=== PATIENT | male | born 1995 | race Caucasian/White ===

== ENCOUNTER 2021-08-04 17:10 | Emergency (ER) | payer OTHER, SELFPAY ==
[2021-08-04 18:10] VITALS: BP 141/95; PULSE 88; RESP 20; TEMP 36.8; O2SAT 97; BMI 31.5
[2021-08-04 18:39] VITALS: BP 141/95; PULSE 88; RESP 20; TEMP 36.8; O2SAT 97
--- NOTE | 2021-08-04 18:51 | HMH.EDUTC ---
[facility] Disposition Clinical Impression: Cellulitis of right foot, Need for Tdap vaccination Puncture wound of right foot Qualifiers: Encounter type: initial encounter Qualified Code(s): S91.331A - Puncture wound without foreign body, right foot, initial encounter Disposition: Home, Self-Care Condition on Discharge: Good Instructions: Cellulitis Additional Instructions: Rest the extremity, Elevate the extremity as much time as tolerated while you are resting. Soak the foot in warm epsom salts water 3 or 4 times per day for 10 minutes each time. Take ibuprofen for pain. I sent in a prescription to your pharmacy. Follow up with Dr. Alston (podiatry) or your regular doctor if you are not getting better with in 48 to 72 hours. I put in a referral to Dr. Alston. You would need to call her office to make an appointment if you want to see her. Follow up with your regular doctor. GO TO THE ER FOR ANY WORSENING SYMPTOMS Prescriptions: Sulfamethoxazole/Trimethoprim [Bactrim DS tablet] 1 each PO BID 10 Days #20 tab Transmission Status: Received by [facility] #[id number] Mupirocin [Bactroban 2% Ointment 22gm tube] 1 applicatio TP TID 7 Days #1 gm Transmission Status: Received by [facility] # cephALEXin [cephALEXin 500mg capsule] 500 mg PO Q6H 10 Days #40 cap Transmission Status: Received by [facility] #[id number] Referrals: Provider,Referral, [Primary Care Provider] - Valeria Alston DPM [Staff Physician] - Time of Disposition: 19:04 Medical Decision Making - Medical Records Medical records reviewed: No: I reviewed the patient's medical records. - [facility] Inquiry Pt receiving controlled substance: No Vital Signs: 08/04/21 18:10 08/04/21 18:39 Temperature 98.3 F 98.3 F Temperature Source Oral Pulse Rate 88 Pulse Rate [Right Brachial] 88 Respiratory Rate 20 20 Blood Pressure 141/95 H Blood Pressure [Right Arm] 141/95 H Blood Pressure Mean [Right Arm] 110 Blood Pressure Source [Right Arm] Automatic Cuff Blood Pressure Position [Right Arm] Sitting 02 Sat by Pulse Oximetry 97 Oxygen Delivery Method Room Air Orders (Tests/Meds): ED MEDICATIONS Discontinued Medications Generic Name Dose Route Start Last Admin Trade Name Paty PRN Reason Stop Dose Admin Tetanus/Reduced Diphtheria/Acell Pertussis 0.5 ml 08/04/21 18:30 08/04/21 18:30 Tet/Diphth/Pert-Adult 0.5ml Syringe IM 08/04/21 18:31 0.5 ml .ONCE ONE Administration [facility] HPI - General Stated complaint: AO 08/03 stepped on drill bit R foot Time Seen by Provider: 08/04/21 18:51 Mode of Arrival: Ambulatory Source of Information: Patient Limitations: No Limitations Description of Symptoms (Recalled from Triage Doc. by RN): PATIENT REPORTS STEPPING ON A DRILL BIT WITH RIGHT FOOT YESTERDAY. REDNESS AND SWELLING TO RIGHT SECOND TOE. PATIENT NEEDS TDAP HEENT Symptoms (Recalled from RN notes): No Resp Symptoms (Recalled from RN notes): No Skin Symptoms (Recalled from RN notes): Yes MS Symptoms (Recalled from RN notes): No Functional Status (Recalled from RN notes): WNL - History of Present Illness Provider Complaint: He states that he stepped on a drill bit with his bare right foor yesterday. He recieved a small puncture wound to the bottom of his right 2nd toe. Since then, he has had worsening pain and swelling of that toe. He denies any fever or chills. He is not a known diabetic. He denies that there could be any foreign body in the wound. He refuses an x-ray. His tetanus immunization is not up to date. - Related Data Previous Rx's Medication Instructions Recorded Mupirocin [Bactroban 2% Ointment 1 applicatio TP TID 7 Days #1 gm 08/04/21 22gm tube] Sulfamethoxazole/Trimethoprim 1 each PO BID 10 Days #20 tab 08/04/21 [Bactrim DS tablet] cephALEXin [cephALEXin 500mg 500 mg PO Q6H 10 Days #40 cap 08/04/21 capsule] fluoxetine 40 mg capsule 40 mg PO DAILY #90 cap 08/05/21
== END 2021-08-04 19:06 | disposition home or self-care (01) ==
PROVIDERS: Emergency Provider Nurse Practitioner Family
DX: L03.115 Cellulitis of right lower limb (principal); S91.331A Puncture wound without foreign body, right foot, initial encounter; W22.8XXA Striking against or struck by other objects, initial encounter; Z23 Encounter for immunization; F33.1 Major depressive disorder, recurrent, moderate
CPT/HCPCS: 90471; 90715; 99202; G0463

== ENCOUNTER 2024-03-08 14:40 | Emergency (ER) | payer OTHER, SELFPAY ==
[2024-03-08 14:45] VITALS: BP 143/75; PULSE 87; RESP 19; TEMP 37; O2SAT 98; BMI 34.4
--- NOTE | 2024-03-08 14:59 | ED_ITS ---
Discharge Plan Disposition Patient Disposition: Home, Self-Care Condition: Good Prescriptions Prescriptions: New clindamycin HCl 300 mg capsule 300 mg PO Q8H Qty: 30 0RF sulfamethoxazole-trimethoprim [Bactrim DS] 800-160 mg Tablet 1 tab PO BID Qty: 20 0RF mupirocin 2 % ointment 1 applic topical TID 7 Days Qty: 15 0RF No Action fluoxetine 40 mg capsule 40 mg .ROUTE .COMPLEX Qty: 90 0RF Rx Instructions: 40 mg; Referrals Follow up/Referrals: Provider,Referral, [Primary Care Provider] - See instructions Activity Restrictions/Add. Instructions Additional Instructions/Restrictions: Keep the wounds clean and dry. Follow up with your regular doctor. Take the antibiotics as directed and apply the topical antibiotics as directed. Make sure you stay in contact with the health department regarding the health of the cat. Follow their recommendations about rabies prophylaxis. Watch the wounds for signs of worsening infection, such as worsening redness, drainage, swelling, etc. GO TO THE ER FOR ANY WORSENING SYMPTOMS Clinical Impressions Clinical Impression: Cat bite of right hand Instructions Patient Instructions: How to Care for a Domestic Animal Bite, DI for Animal Bites, Clindamycin, Mupirocin Discharge ED Provider: Salvador Ramos [facility] General Stated complaint: bite on right hand Mode of Arrival: Ambulatory Source of Information: Patient Limitations: No Limitations Time Seen by Provider: 03/08/24 14:59 Description of Symptoms (Recalled from Triage Doc. by RN): Pt was bitten by a stray kitten that was stuck under porch. He has a bite and a scratch on his right thumb. His last tdap was 08/04/2021. HEENT Symptoms (Recalled from RN notes): No Resp Symptoms (Recalled from RN notes): No Skin Symptoms (Recalled from RN notes): Yes MS Symptoms (Recalled from RN notes): No Functional Status (Recalled from RN notes): n/a History of Present Illness Provider Complaint: He states that he was bit by a kitten that is living under his porch today. He was bit on his right thumb. The cat is a stray. His tetanus immunization is up to date. Related Data Previous Rx's Medication Instructions Recorded fluoxetine 40 mg capsule 40 mg .Route .COMPLEX #90 caps 03/03/24 clindamycin HCl 300 mg capsule 300 mg PO Q8H #30 caps 03/08/24 mupirocin 2 % topical ointment 1 applic topical TID 7 days #15 03/08/24 grams sulfamethoxazole 800 1 tab PO BID #20 tabs 03/08/24 mg-trimethoprim 160 mg tablet (Bactrim DS) Allergies Allergy/AdvReac Type Severity Reaction Status Date / Time amoxicillin Allergy Intermediate Verified 03/08/24 14:58 Penicillins Allergy Intermediate Verified 03/08/24 14:58 Worker's Comp Is this a Worker's Comp case?: No PFSH PFS Disclaimer: The information contained in this section may have been updated after the patient was seen, as this information can be updated by other users. Medical History (Updated 03/08/24 @ 15:39 by Salvador Ramos APRN) Major depressive disorder Social History Smoking Status: Never smoker alcohol intake: current alcohol intake frequency: holidays/special occasions only substance use type: marijuana current occupational status: unemployed Travel in the last 8 weeks: None number of children: 0 ROS Obtained: Yes All systems reviewed & no additional complaints except as documented Constitutional Constitutional: Denies chills and Denies fever(s) Eyes Eyes: Denies eye discharge ENT Ears, Nose, Mouth, and Throat: Denies dizziness, Denies otalgia and Denies sore throat Cardiovascular Cardiovascular: Denies chest pain Respiratory Respiratory: Denies shortness of breath, Denies chest congestion, Denies cough, Denies stridor and Denies wheezing Gastrointestinal Gastrointestingal: Denies nausea or vomiting Musculoskeletal Musculoskeletal: Reports system reviewed and no additional complaints, except as documented and Denies arthralgias Integumentary/Breasts Skin/Breast: Reports as per HPI and Reports other Neurologic Neurologic: Denies dizziness and Denies paresthesias Allergic/Immunologic Allergic/Immunologic: Denies wheezing Physical Exam General General appearance: alert and in no apparent distress Head Head exam: atraumatic, normocephalic and normal inspection Eye Eye exam: Present normal appearance, PERRL and EOMI ENT ENT exam: Present normal exam, normal oropharynx, mucous membranes moist, TM's normal bilaterally and normal external ear exam Neck Neck exam: Present normal inspection, full ROM and trachea midline; Absent meningismus or lymphadenopathy Chest Chest inspection: Present normal inspection and symmetric chest wall rise; Absent tenderness Respiratory Respiratory exam: Present normal lung sounds bilaterally; Absent respiratory distress Cardiovascular Cardiovascular exam: Present regular rate and normal rhythm; Absent JVD Abdominal Exam Abdominal exam: Present soft and normal bowel sounds; Absent distention, tenderness or guarding Extremities Exam Extremities exam: Present normal inspection, full ROM and normal capillary refill; Absent calf tenderness Back Exam Back exam: Present normal inspection; Absent tenderness Neurological Exam Neurological exam: Present alert and oriented X3 Psychiatric Psychiatric exam: Present normal affect and normal mood Skin Skin exam: Present other (there are several superficial linear abrasions on his right thumb. no deep tissue damage, no foreign body, he has good 2 touch discrimination distal to the wound.) Lymphatic Lymphatic Findings: no adenopathy Medical Decision Making Medical Records Medical records reviewed: No I reviewed the patient's medical records. [facility] Inquiry Pt receiving controlled substance: No Vital Signs: 03/08/24 14:45 Temperature 98.6 F Temperature Source Oral Pulse Rate [Right Radial] 87 Respiratory Rate 19 Blood Pressure [Right Arm] 143/75 H Blood Pressure Mean [Right Arm] 97 Blood Pressure Source [Right Arm] Automatic Cuff Blood Pressure Position [Right Arm] Sitting 02 Sat by Pulse Oximetry 98 Oxygen Delivery Method Room Air
[2024-03-08 15:42] VITALS: BP 143/75; PULSE 87; RESP 18; TEMP 37; O2SAT 98
== END 2024-03-08 15:42 | disposition home or self-care (01) ==
PROVIDERS: Emergency Provider Nurse Practitioner Family
DX: S61.451A Open bite of right hand, initial encounter (principal); W55.01XA Bitten by cat, initial encounter; W55.03XA Scratched by cat, initial encounter
CPT/HCPCS: 99212; 99214; G0463

== ENCOUNTER 2024-03-16 15:11 | Emergency (ER) | payer OTHER, SELFPAY ==
[2024-03-16 15:20] VITALS: BP 133/86; PULSE 83; RESP 17; TEMP 36.8; O2SAT 98; BMI 34.3
--- NOTE | 2024-03-16 15:55 | ED_ITS ---
Discharge Plan Disposition Patient Disposition: Home, Self-Care Condition: Good Prescriptions Prescriptions: New ofloxacin 0.3 % drops 10 drp otic (ear) Q12H 14 Days Qty: 10 0RF No Action fluoxetine 40 mg capsule 40 mg PO DAILY cetirizine [Zyrtec] 10 mg Tablet 10 mg PO DAILY Referrals Follow up/Referrals: Provider,Referral, [Primary Care Provider] - See instructions Activity Restrictions/Add. Instructions Additional Instructions/Restrictions: Do not put anything in your ear other than ear drops. Take Tylenol/Motrin as needed for pain/fever. IF symptoms persist or worsen, follow up with primary care provider. Clinical Impressions Clinical Impression: Acute suppur right otitis media w/spontan rupture of tympanic membrane Instructions Patient Instructions: DI for Otitis Externa, Middle Ear Infection Discharge ED Provider: Ema Marrero [facility] General Stated complaint: RT ear pain Mode of Arrival: Ambulatory Source of Information: Patient Limitations: No Limitations Time Seen by Provider: 03/16/24 15:39 Description of Symptoms (Recalled from Triage Doc. by RN): PATIENT C/O RIGHT EAR PAIN X 4 DAYS HEENT Symptoms (Recalled from RN notes): Yes Resp Symptoms (Recalled from RN notes): No Skin Symptoms (Recalled from RN notes): No MS Symptoms (Recalled from RN notes): No Functional Status (Recalled from RN notes): WNL History of Present Illness Provider Complaint: Pt reports that he can barely hear out of his right ear. He states that he has been trying to get the ear wax out and has used peroxide down in his ear. He states that when he stuffed it full of tissue he had an intense pain in his ear. Related Data Home Medications Medication Instructions Recorded Confirmed cetirizine 10 mg tablet (Zyrtec) 10 mg PO DAILY 03/16/24 03/16/24 fluoxetine 40 mg capsule 40 mg PO DAILY 03/16/24 03/16/24 Previous Rx's Medication Instructions Recorded ofloxacin 0.3 % ear drops 10 drp otic (ear) Q12H 14 days #10 03/16/24 mL Allergies Allergy/AdvReac Type Severity Reaction Status Date / Time amoxicillin Allergy Intermediate Verified 03/08/24 14:58 Penicillins Allergy Intermediate Verified 03/08/24 14:58 Worker's Comp Is this a Worker's Comp case?: No [facility] Dis[facility]: The information contained in this section may have been updated after the patient was seen, as this information can be updated by other users. Medical History (Updated 03/16/24 @ 16:00 by Ema Marrero APRN) Depression Anxiety Migraine Major depressive disorder Social History Smoking Status: Never smoker alcohol intake: current alcohol intake frequency: holidays/special occasions only substance use type: marijuana current occupational status: unemployed Travel in the last 8 weeks: None number of children: 0 ROS Obtained: Yes All systems reviewed & no additional complaints except as documented Constitutional Constitutional: Reports system reviewed and no additional complaints, except as documented Eyes Eyes: Reports system reviewed and no additional complaints, except as documented ENT Ears, Nose, Mouth, and Throat: Reports system reviewed and no additional complaints, except as documented and Reports otalgia Cardiovascular Cardiovascular: Reports system reviewed and no additional complaints, except as documented Respiratory Respiratory: Reports system reviewed and no additional complaints, except as documented Gastrointestinal Gastrointestingal: Reports system reviewed and no additional complaints, except as documented Genitourinary Male Genitourinary: Reports system reviewed and no additional complaints, except as documented Musculoskeletal Musculoskeletal: Reports system reviewed and no additional complaints, except as documented Integumentary/Breasts Skin/Breast: Reports system reviewed and no additional complaints, except as documented Neurologic Neurologic: Reports system reviewed and no additional complaints, except as documented Endocrine Endocrine: Reports system reviewed and no additional complaints, except as documented Hematologic/Lymphatic Henatologic/Lymphatic: Reports system reviewed and no additional complaints, except as documented Allergic/Immunologic Allergic/Immunologic: Reports system reviewed and no additional complaints, except as documented Physical Exam General General appearance: alert and in no apparent distress Head Head exam: atraumatic and normocephalic Eye Eye exam: Present normal appearance Expanded ENT Exam External ear exam: Present normal external inspection and pain with movement TM/Canal exam: Right TM: erythema, cerumen impaction and canal tenderness Nasal speculum exam: Bilateral: normal Mouth exam: Present normal external inspection Teeth exam: Present normal inspection Throat exam: Present normal inspection Neck Neck exam: Present normal inspection Chest Chest inspection: Present normal inspection Respiratory Respiratory exam: Present normal lung sounds bilaterally Cardiovascular Cardiovascular exam: Present regular rate and normal rhythm Abdominal Exam Abdominal exam: Present soft and normal bowel sounds Extremities Exam Extremities exam: Present normal inspection Back Exam Back exam: Present normal inspection Neurological Exam Neurological exam: Present alert and oriented X3 Psychiatric Psychiatric exam: Present normal affect and normal mood Skin Skin exam: Present warm, dry and intact Lymphatic Lymphatic Findings: no adenopathy Medical Decision Making [facility] Inquiry Pt receiving controlled substance: No [facility] was queried for this patient: No Vital Signs: 03/16/24 15:20 Temperature 98.3 F Temperature Source Oral Pulse Rate [Left Brachial] 83 Respiratory Rate 17 Blood Pressure [Left Arm] 133/86 Blood Pressure Mean [Left Arm] 101 Blood Pressure Source [Left Arm] Automatic Cuff Blood Pressure Position [Left Arm] Sitting 02 Sat by Pulse Oximetry 98 Oxygen Delivery Method Room Air Procedures Ear Wax Removal Right Ear: Cerumenolytic Used: other (baby shampoo and warm water.) Results: Re-examined: some cerumen remains TM Examination: TM(s) erythematous and TM(s) perforation Ear Canal Exam: other (redness noted prior to start of procedure) Patient Tolerated Procedure: well Complications: pain Technique: ear canal irrigated and ear canal curetted Additional Comments: Pt reports attempting to clean at home and felt a lot of pain when stuffing tissue inside of ear.
[2024-03-16 16:00] VITALS: BP 133/86; PULSE 83; RESP 17; TEMP 36.8; O2SAT 98
== END 2024-03-16 16:04 | disposition home or self-care (01) ==
PROVIDERS: Emergency Provider Nurse Practitioner Family
DX: H66.001 Acute suppurative otitis media without spontaneous rupture of ear drum, right ear (principal); H92.01 Otalgia, right ear
CPT/HCPCS: 99212; 99214; G0463